=== PATIENT | male | born 1995 | race Caucasian/White ===

== ENCOUNTER 2022-09-20 01:23 | Emergency (ER) | payer MEDICAID ==
[~2022-09-20] VITALS: Ht 162.6 cm; Wt 61.5 kg
[2022-09-20 01:39] VITALS: BP 114/67; PULSE 62; RESP 18; TEMP 98.2; O2SAT 100
== END 2022-09-20 05:10 | disposition left against medical advice (07) ==
LOC: ER 01:23
DX: Z53.21 Procedure and treatment not carried out due to patient leaving prior to being seen by health care provider (principal)
CPT/HCPCS: 99281